=== PATIENT | female | born 1940 | race Caucasian/White ===

== ENCOUNTER 2017-05-08 15:26 | Inpatient (IN) | payer MEDICARE ==
[~2017-05-08] VITALS: Ht 162.6 cm; Wt 83.5 kg
[2017-05-08] MEDS ORDERED: METO50TA3 PO (15:53)
[2017-05-08] MEDS ORDERED: TELM80TA2 PO (15:53)
[2017-05-08] MEDS ORDERED: ASPI81TA31 PO (15:53)
[2017-05-08] MEDS ORDERED: LABETALOL HCL 100 MG/20 ML VIAL IV ONE ×3 (16:00→17:30)
[2017-05-08] MEDS ORDERED: LABETALOL HCL 100 MG/20 ML VIAL ONE ×2 (16:16→17:09)
[2017-05-08 16:44] LABS: *BILIRUBIN,URIN NEGATIVE (NEGATIVE); *BLOOD, URINE Trace-lysed (NEGATIVE); *CLARITY,URINE CLEAR (CLEAR); *COLOR,URINE LIGHT YELLOW (YELLOW); *KETONES,URINE NEGATIVE (NEGATIVE); *PROTEIN,URINE NEGATIVE (NEGATIVE); *UROBILINOGEN,URINE 0.2 E.U./dl (NORMAL); LEUKOCYTE ESTERASE ,URINE NEGATIVE (NEGATIVE); NITRITE, URINE NEGATIVE (NEGATIVE); UGLUCOSE NEGATIVE (NEGATIVE)
[2017-05-08 16:48] LABS: BASOPHILS # (AUTO) 0.1 K/uL (0.0-8.0); BASOPHILS % (AUTO) 1.3 % (0.0-2.0); EOSINOPHILS # (AUTO) 0.1 K/uL (0.0-0.7); EOSINOPHILS % (AUTO) 1.4 % (0.0-7.0); HEMATOCRIT 42.8 % (37-47); HEMOGLOBIN 13.9 G/DL (12.0-16.0); LYMPHOCYTES # (AUTO) 0.9 K/UL (0.8-4.8); LYMPHOCYTES % (AUTO) 16.7 % (20.5-51.5); MEAN CORPUSCULAR HEMOGLOBIN 31.3 UUG (27.0-31.0); MEAN CORPUSCULAR HGB CONC 33 g/dL (32.0-37.0); MONOCYTES # (AUTO) 0.3 K/UL (0.1-1.30); MONOCYTES % (AUTO) 5.7 % (0.0-11.0); NEUTROPHILS # (AUTO) 3.7 K/UL (1.8-8.9); NEUTROPHILS % (AUTO) 74.9 % (38.5-71.5); PLATELET COUNT (AUTO) 302 K/UL (150-450); RED BLOOD CELL COUNT(AUTO) 4.46 MIL/UL (4.2-5.4); WHITE BLOOD COUNT (AUTO) 5.1 K/UL (4.0-11.2)
[2017-05-08 16:50] LABS: CARBON DIOXIDE 24 mmol/L (21-32); CHLORIDE 102 mmol/L (98-107); CREATININE 0.8 mg/dL (0.6-1.3); GLUCOSE 117 mg/dL (74-106); POTASSIUM 3.7 mmol/L (3.5-5.1); UREA NITROGEN, BLOOD 18 mg/dL (7-18)
[2017-05-08 16:55] LABS: ALANINE AMINOTRANSFERASE 20 U/L (14-59); ALKALINE PHOSPHATASE 96 U/L (50-136); ASPARTATE AMINOTRANSFERASE 13 U/L (15-37); BILIRUBIN,DIRECT 0.1 mg/dL (0.0-0.2); BILIRUBIN,TOTAL 0.3 mg/dL (0.2-1.0)
[2017-05-08 17:01] LABS: RBC,URINE 0-3 /HPF (0-3)
[2017-05-08 17:02] LABS: WBC,URINE NONE SEEN /HPF (0-3)
[2017-05-08 17:05] LABS: BAND % (MANUAL) 2 % (0-10); LYMPHOCYTES % (MANUAL) 15 % (20-40); MONOCYTES % (MANUAL) 7 % (2-10); NEUTROPHILS % (MANUAL) 76 % (42-75)
[2017-05-08] MEDS ORDERED: LORAZEPAM 2 MG/1 ML VIAL IV ONE (17:45)
[2017-05-08] MEDS ORDERED: LORAZEPAM 2 MG/1 ML VIAL ONE (17:56)
[2017-05-08] MEDS ORDERED: hydrALAZINE HCL 20 MG/1 ML VIAL IV ONE (18:00)
--- NOTE | 2017-05-08 18:14 | NUR ---
ALLMDORTDERS COMPLETED,LABS/MEDS/EKG'S. DR SÁNCHEZ PACK PT'S NARES,BLEEDING UNDER CONTROL. BELONGSLIST, ADMIT ORDER AND SKIN ASSESSMENT COMPLETED. SBAR REPORT TO HOMER RN. PRESENTLY MONITOR SHOWS NSR, AT=[phone]/105, HR=98
[2017-05-08] MEDS ORDERED: hydrALAZINE HCL 20 MG/1 ML VIAL ONE (18:30)
[2017-05-08 18:44] VITALS: BP 112/68
--- NOTE | 2017-05-08 18:45 | NUR ---
Noted one shoe with patient asked Cristopher to look for the other shoe down stairs in er. Will endorse to next shift to f/u re: missing shoe of patient.
--- NOTE | 2017-05-08 19:30 | NUR ---
ADMITTED NEW PATIENT TO ROOM 205, PATIENT ALERT, ORIENTED X 4, SLIGHTLY ANXIOUS,LEFT NOSTRIL WAS PACK WITH MEROCEL TAMPON,SLIGHTLY OOZING NOTED,HOB ELEVATED, PATIENT WAS INSTRUCTED TO BE BED REST,TO CALL FOR ASSISTANCE,BP 112/68,NO SOB NOTED, ATRIAL FIBRILLATION NOTED ON MONITOR RATE CONTROL 80'S.
[2017-05-08] MEDS ORDERED: hydrALAZINE HCL 25 MG TABLET PO PRN (21:15)
[2017-05-08] MEDS ORDERED: ONDANSETRON 4 MG/2 ML VIAL IV PRN (21:15)
[2017-05-08] MEDS ORDERED: ZOLPIDEM 5 MG TABLET PO PRN (21:15)
[2017-05-08] MEDS: ACETAMINOPHEN 325 MG TABLET PO PRN (21:21)
--- NOTE | 2017-05-08 21:30 | NUR ---
TROPONIN DONE=0.288 TRENDING DOWN.LEFT NOSTRIL BLEED STOPPED.
[2017-05-08] MEDS ORDERED: ACETAMINOPHEN 325 MG TABLET ONE (21:34)
[2017-05-08] MEDS ORDERED: ZOLPIDEM 5 MG TABLET ONE (23:23)
[2017-05-09] VITALS (7 sets, daily range): BP systolic 119–173; BP diastolic 62–99
--- NOTE | 2017-05-09 00:12 | NUR ---
AMBIEN 5 MG PO ADMIN FOR C/O INSOMNIA.
[2017-05-09] MEDS: ACETAMINOPHEN 325 MG TABLET PO PRN ×2 (02:37→08:26)
[2017-05-09] MEDS ORDERED: ACETAMINOPHEN 325 MG TABLET ONE (02:49)
[2017-05-09] MEDS: METOPROLOL TARTRATE 50 MG TABLET PO SCH ×2 (04:59→16:41)
--- NOTE | 2017-05-09 05:05 | NUR ---
PATIENT SLEEP INTERMITTENTLY, REMAINS CONTROL A FIB ON MONITOR, BP 168/98,PATIENT C/O MILD HEADACHE,METOPROLOL 50 MG PO ADMIN SCHEDULED,CONTINUE CLOSELY MONITOR.
[2017-05-09] MEDS ORDERED: METOPROLOL TARTRATE 50 MG TABLET ONE (05:09)
[2017-05-09 06:49] LABS: EOSINOPHILS # (AUTO) 0.1 K/uL (0.0-0.7); EOSINOPHILS % (AUTO) 1.9 % (0.0-7.0); HEMATOCRIT 38.5 % (37-47); HEMOGLOBIN 12.9 G/DL (12.0-16.0); LYMPHOCYTES % (AUTO) 24.7 % (20.5-51.5); MEAN CORPUSCULAR HEMOGLOBIN 32.1 UUG (27.0-31.0); MEAN CORPUSCULAR HGB CONC 34 g/dL (32.0-37.0); MEAN CORPUSCULAR VOLUME 95.8 FL (81.0-99.0); MONOCYTES # (AUTO) 0.4 K/UL (0.1-1.30); MONOCYTES % (AUTO) 9.2 % (0.0-11.0); NEUTROPHILS # (AUTO) 2.4 K/UL (1.8-8.9); NEUTROPHILS % (AUTO) 63.2 % (38.5-71.5); PLATELET COUNT (AUTO) 283 K/UL (150-450); RED BLOOD CELL COUNT(AUTO) 4.02 MIL/UL (4.2-5.4); WHITE BLOOD COUNT (AUTO) 3.9 K/UL (4.0-11.2)
[2017-05-09 07:07] LABS: ALANINE AMINOTRANSFERASE 19 U/L (14-59); ALKALINE PHOSPHATASE 80 U/L (50-136); ASPARTATE AMINOTRANSFERASE 13 U/L (15-37); BILIRUBIN,TOTAL 0.5 mg/dL (0.2-1.0); CARBON DIOXIDE 21 mmol/L (21-32); CHLORIDE 104 mmol/L (98-107); CREATININE 0.7 mg/dL (0.6-1.3); GLUCOSE 104 mg/dL (74-106); MAGNESIUM 1.8 mg/dL (1.8-2.4); PHOSPHOROUS 3.1 mg/dL (2.5-4.9); POTASSIUM 3.3 mmol/L (3.5-5.1); UREA NITROGEN, BLOOD 11 mg/dL (7-18)
--- NOTE | 2017-05-09 08:15 | NUR ---
awake alert and oriented, speaks Lithuanian, c/o headache, BP 173/92- medicated with Tylenol for headache and BP medications given, explained plan of care-verbalized understanding, Lithuanian speaking master pilot interpreted, call light within reach
[2017-05-09] MEDS: VALSARTAN 80 MG TABLET PO SCH (08:26)
[2017-05-09 09:25] LABS: CHOLESTEROL 288 mg/dL (<200); HDL CHOLESTEROL 84 mg/dL (40-60); TRIGLYCERIDES 89 MG/DL (30-150)
--- NOTE | 2017-05-09 09:45 | NUR ---
BP rechecked- 151/91, states headache relieved, left nostril pack in place-dried blood noted at the tip of packing
[2017-05-09 10:00] LABS: THYROID STIMULATING HORMONE 2.715 mIU/mL (0.358-3.740)
--- NOTE | 2017-05-09 11:00 | NUR ---
left nostril pack removed by DR Fowler- no bleeding noted
--- NOTE | 2017-05-09 13:00 | NUR ---
good appetite, up to BR with standby assistance- tolerated well, denies of chest pain, no headache, no epistaxis noted.
[2017-05-09] MEDS ORDERED: ALPRAZOLAM 0.25 MG TABLET PO PRN (13:15)
[2017-05-09] MEDS: ENOXAPARIN SODIUM 40 MG/0.4 ML DISP.SYRIN SQ SCH (14:18)
[2017-05-09] MEDS ORDERED: POTASSIUM CHLORIDE 20 MEQ TAB.PRT.SR PO ONE (16:30)
--- NOTE | 2017-05-09 18:09 | NUR ---
no distress noted, tele afib controlled, all needs attended and met, call light within reach
--- NOTE | 2017-05-09 18:11 | NUR ---
followed up with ER re missing shoe- still missing
--- NOTE | 2017-05-09 19:20 | NUR ---
Received patient awake, sitting at the edge of bed. Denies any pain/discomforts. Left AC HL intact with some redness ion the site. Patient refused to re insert a new one this time,
[2017-05-09] MEDS: AMLODIPINE 5 MG TABLET PO SCH (20:46)
[2017-05-09] MEDS ORDERED: ATORVASTATIN 20 MG TABLET PO SCH (21:00)
[2017-05-10] VITALS: BP 125/78
--- NOTE | 2017-05-10 06:00 | NUR ---
Slept well. No complaint presented all night. All needs attended and met. No significant event reported all night. Continue current plan of care.
[2017-05-10 06:56] VITALS: BP 130/82
[2017-05-10 07:09] LABS: CARBON DIOXIDE 24 mmol/L (21-32); CHLORIDE 104 mmol/L (98-107); CREATININE 0.7 mg/dL (0.6-1.3); GLUCOSE 102 mg/dL (74-106); UREA NITROGEN, BLOOD 12 mg/dL (7-18)
[2017-05-10 08:00] VITALS: BP 129/67
[2017-05-10] MEDS: AMLODIPINE 5 MG TABLET PO SCH (09:19)
[2017-05-10] MEDS: METOPROLOL TARTRATE 50 MG TABLET PO SCH ×2 (09:19→17:00)
[2017-05-10] MEDS: VALSARTAN 80 MG TABLET PO SCH (09:20)
[2017-05-10 11:34] VITALS: BP 130/81
[2017-05-10] MEDS: ENOXAPARIN SODIUM 40 MG/0.4 ML DISP.SYRIN SQ SCH (12:43)
[2017-05-10] MEDS ORDERED: METO50TA3 PO ×2 (14:41→14:47)
[2017-05-10] MEDS ORDERED: PRAV20TA4 PO ×2 (14:41→14:47)
[2017-05-10] MEDS ORDERED: AMLO10TA2 PO ×2 (14:41→14:47)
[2017-05-10] MEDS ORDERED: CAPT25TA3 PO (14:47)
[2017-05-10] MEDS ORDERED: POTA10TA15 PO (14:47)
[2017-05-10] MEDS ORDERED: FURO-152 PO (14:47)
--- NOTE | 2017-05-10 15:30 | NUR ---
Pt was seen by DR Rodriges with orders to dc home with family, family will in later by 1700, [facility] to [facility] dc as per pt request now, pt is satble to distress.
[2017-05-10 16:02] VITALS: BP 136/76
--- NOTE | 2017-05-10 17:15 | NUR ---
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
== END 2017-05-10 17:30 | disposition home or self-care (01) | DRG 280 ==
LOC: ER 15:39 → DOU 18:24 → TELE-TD 19:03 → MED 05-10 13:31
PROVIDERS: ADMIT Nurse Practitioner Acute Care; ATTEND Nurse Practitioner Acute Care
PROC: 2Y41X5Z Packing of Nasal Region using Packing Material (ICD-10-PCS; principal; 2017-05-08)
DX: I21.A1 Myocardial infarction type 2 (principal); I50.33 Acute on chronic diastolic (congestive) heart failure; D68.59 Other primary thrombophilia; I48.91 Unspecified atrial fibrillation; I07.1 Rheumatic tricuspid insufficiency; I11.0 Hypertensive heart disease with heart failure; R04.0 Epistaxis; I25.10 Atherosclerotic heart disease of native coronary artery without angina pectoris; Z79.82 Long term (current) use of aspirin; Z79.899 Other long term (current) drug therapy; E78.5 Hyperlipidemia, unspecified; Z85.038 Personal history of other malignant neoplasm of large intestine; Z82.49 Family history of ischemic heart disease and other diseases of the circulatory system; F41.9 Anxiety disorder, unspecified; E87.6 Hypokalemia; E66.9 Obesity, unspecified; Z68.31 Body mass index [BMI] 31.0-31.9, adult
CPT/HCPCS: 36415; 70030-TC; 70450; 71010; 83735; 84100; 84443; 85025; 85730; 93005; 93307; A4217; A4663; J0360; J1650; J2060; J3490